=== PATIENT | female | born 1950 | race Caucasian/White ===

== ENCOUNTER 2018-06-15 14:15 | Observation (INO) | payer MEDICARE, OTHER ==
[~2018-06-15] VITALS: Ht 162.6 cm; Wt 63.6 kg
--- NOTE | 2018-06-15 14:46 | NUR ---
Pt complains of chest pressure that radiates through to her back.
[2018-06-15] MEDS ORDERED: nitroGLYCERIN 0.4mg SUBLingual tab SL ONE (14:53)
[2018-06-15] MEDS ORDERED: nitroGLYCERIN 0.4mg SUBLingual tab SL PRN ×2 (14:55→17:50)
[2018-06-15 15:02] LABS: BASOPHILS % (AUTO) 0.5 % (0-1); EOSINOPHILS # (AUTO) 0.1 X10'3 (0-0.9); EOSINOPHILS % (AUTO) 1.1 % (0-6); HEMATOCRIT 42.1 % (35.0-45.0); HEMOGLOBIN 14.3 g/dl (12.0-16.0); LYMPHOCYTES # (AUTO) 3.2 X10'3 (1.1-4.8); LYMPHOCYTES % (AUTO) 37.8 % (21-51); MEAN CORPUSCULAR HEMOGLOBIN 31.8 PG (27.0-31.0); MEAN CORPUSCULAR VOLUME 93.6 FL (78-98); MEAN PLATELET VOLUME 9.2 FL (7.4-10.4); MONOCYTES # (AUTO) 0.6 X10'3 (0-0.9); MONOCYTES % (AUTO) 6.7 % (2-12); NEUTROPHILS # (AUTO) 4.5 X10'3 (1.8-7.7); NEUTROPHILS % (AUTO) 53.9 % (42-75); PLATELET COUNT 231 X10'3 (140-440); RED CELL DISTRIBUTION WIDTH 13.4 % (11.5-14.5); WHITE BLOOD COUNT 8.4 X10'3 (4.5-11.0)
[2018-06-15 15:18] LABS: PARTIAL THROMBOPLASTIN TIME 27 SECONDS (22-32)
[2018-06-15 15:22] LABS: ALANINE AMINOTRANSFERASE 18 U/L (12-78); ALBUMIN 4.2 G/DL (3.4-5.0); ALBUMIN/GLOBULIN RATIO 1.1 (1.1-1.5); ALKALINE PHOSPHATASE 46 IU/L (46-116); ANION GAP 13 (8-16); ASPARTATE AMINO TRANSFERASE 18 U/L (10-37); BILIRUBIN,TOTAL 0.2 MG/DL (0.1-1.0); BLOOD UREA NITROGEN 14 MG/DL (7-18); BUN/CREATININE RATIO 15.4 (6.6-38.0); CALCIUM 9.2 MG/DL (8.5-10.1); CHLORIDE 103 MMOL/L (99-107); CREATININE 0.91 MG/DL (0.40-0.90); GLUCOSE 105 MG/DL (70-104); POTASSIUM 3.5 MMOL/L (3.5-5.1); SODIUM 140 MMOL/L (135-145); TOTAL CARBON DIOXIDE 24.5 MMOL/L (24-32); TOTAL PROTEIN 7.9 G/DL (6.4-8.2); eGFR 61 ML/MIN
[2018-06-15 16:00] LABS: D-DIMER 0.28 MG/L FEU (0-0.50)
--- NOTE | 2018-06-15 16:11 | NUR ---
HOSPITALIST IN ROOM TO EVAL FOR ADMIT.
[2018-06-15] MEDS ORDERED: ASPI-974 PO (16:44)
[2018-06-15] MEDS ORDERED: CHOL500061 PO (16:44)
[2018-06-15] MEDS ORDERED: ESTR1TAB19 PO (16:44)
[2018-06-15] MEDS ORDERED: DENO60DI SQ (16:44)
[2018-06-15] MEDS ORDERED: MAGN400C PO (16:44)
[2018-06-15] MEDS ORDERED: ondansetron/PF 4mg/2ml inj IV ONE (17:00)
[2018-06-15] MEDS ORDERED: normal saline 1000ML IV soln IVB ONE (17:00)
[2018-06-15] MEDS ORDERED: acetaminophen 325mg tablet PO PRN (17:45)
[2018-06-15] MEDS ORDERED: magnesium 4gm in 100ml NS 100 ML IV PRN (17:45)
[2018-06-15] MEDS ORDERED: potassium Cl 40MEQ/NS 500ml 500 ML IV PRN ×2 (17:45)
[2018-06-15] MEDS ORDERED: aspirin 81mg tab.chew PO ONE (17:45)
[2018-06-15] MEDS ORDERED: magnesium 2GM in 50ml NS 50 ML IV PRN (17:45)
[2018-06-15] MEDS ORDERED: potassium Cl 20 mEq SR tablet PO PRN ×2 (17:45)
[2018-06-15] MEDS ORDERED: magnesium Cl slow-release 64mg tablet PO PRN (17:45)
[2018-06-15] MEDS ORDERED: ondansetron/PF 4mg/2ml inj IV PRN (17:45)
[2018-06-15] MEDS ORDERED: regadenoson 0.4mg/5ml syringe IV PRN (17:50)
[2018-06-15] MEDS ORDERED: aminophylline 250mg/10ml inj. IV PRN (17:50)
[2018-06-15] MEDS ORDERED: metoprolol tartrate 1mg/ml inj IV PRN (17:50)
[2018-06-15] MEDS: aspirin 325mg tablet PO SCH (19:37)
[2018-06-15] MEDS: normal saline 1000ml 1,000 ML IV SCH ×2 (19:38→23:51)
--- NOTE | 2018-06-15 22:20 | NUR ---
Patient in room [facility]. I have received report from DEO Avila and had the opportunity to ask questions and assume patient care.
[2018-06-15 22:25] VITALS: BP 142/68
[2018-06-16] VITALS (14 sets, daily range): BP systolic 108–158; BP diastolic 62–92
[2018-06-16 02:50] LABS: BASOPHILS % (AUTO) 0.5 % (0-1); EOSINOPHILS # (AUTO) 0.1 X10'3 (0-0.9); EOSINOPHILS % (AUTO) 1.1 % (0-6); HEMATOCRIT 38.9 % (35.0-45.0); HEMOGLOBIN 12.8 g/dl (12.0-16.0); LYMPHOCYTES # (AUTO) 2.3 X10'3 (1.1-4.8); LYMPHOCYTES % (AUTO) 31.2 % (21-51); MEAN CORPUSCULAR HGB CONC 32.9 % (33.0-36.5); MEAN CORPUSCULAR VOLUME 94.5 FL (78-98); MONOCYTES # (AUTO) 0.6 X10'3 (0-0.9); NEUTROPHILS # (AUTO) 4.3 X10'3 (1.8-7.7); NEUTROPHILS % (AUTO) 59.2 % (42-75); PLATELET COUNT 214 X10'3 (140-440); RED BLOOD COUNT 4.12 X10'6 (4.20-5.60); RED CELL DISTRIBUTION WIDTH 12.9 % (11.5-14.5); WHITE BLOOD COUNT 7.3 X10'3 (4.5-11.0)
[2018-06-16 03:07] LABS: ALBUMIN 3.5 G/DL (3.4-5.0); ANION GAP 12 (8-16); BLOOD UREA NITROGEN 13 MG/DL (7-18); BUN/CREATININE RATIO 15.5 (6.6-38.0); CALCIUM 8.5 MG/DL (8.5-10.1); CHLORIDE 105 MMOL/L (99-107); CREATININE 0.84 MG/DL (0.40-0.90); GLUCOSE 106 MG/DL (70-104); MAGNESIUM 1.9 MG/DL (1.5-2.4); POTASSIUM 3.6 MMOL/L (3.5-5.1); SODIUM 142 MMOL/L (135-145); TOTAL CARBON DIOXIDE 25.1 MMOL/L (24-32); eGFR 67 ML/MIN
--- NOTE | 2018-06-16 06:14 | NUR ---
Problems reprioritized. Patient report given, questions answered & plan of care reviewed with DEO Moreno.
--- NOTE | 2018-06-16 06:22 | NUR ---
Patient in room [facility]. I have received report from Leonard DESOUZA and had the opportunity to ask questions and assume patient care. patient in bed sleeping
[2018-06-16] MEDS: estradiol 1mg tablet PO SCH (07:37)
[2018-06-16] MEDS: K and/or MAG REPLACEMENT MC SCH (07:42)
[2018-06-16] MEDS: enoxaparin 40mg/0.4ml syringe SUBCUT SCH (07:43)
[2018-06-16] MEDS: magnesium oxide 400mg tablet PO SCH ×2 (07:43→13:07)
[2018-06-16] MEDS: vitamin D (cholecalciferol) 1,000 unit tablet PO SCH ×2 (07:43→13:07)
[2018-06-16] MEDS: aspirin 325mg tablet PO SCH ×3 (07:43→21:50)
--- NOTE | 2018-06-16 07:44 | NUR ---
PATIENT IS npo FOR A CARDIO STRESS TEST, SHE DID NOT WANT TO TAKE HER MEDICATIONS ON AN EMPTY STOMACH
--- NOTE | 2018-06-16 09:00 | NUR ---
Patient went to [facility] in wheel chair to get stress test.
[2018-06-16] MEDS ORDERED: regadenoson 0.4mg/5ml syringe IV ONE (09:35)
[2018-06-16] MEDS ORDERED: aminophylline inj. 10 ML IV ONE (09:35)
--- NOTE | 2018-06-16 10:50 | NUR ---
PATIENT BACK TO ROOM 354A FAMILY AND MD AT BEDSIDE
[2018-06-16 11:59] LABS: LIPASE 128 U/L (73-393)
[2018-06-16] MEDS ORDERED: pantoprazole 40mg Tablet.DR PO ONE (13:00)
[2018-06-16] MEDS: metoprolol tartrate 25mg tablet PO SCH ×2 (13:07→21:51)
[2018-06-16 14:00] LABS: CHOL/HDL RATIO 3.8 (0.00-4.99); CHOLESTEROL 246 MG/DL (0-200); HDL CHOLESTEROL 64 MG/DL (35-60); LDL CHOLESTEROL 132 MG/DL (50-100); TRIGLYCERIDES 249 MG/DL (20-135)
--- NOTE | 2018-06-16 16:16 | NUR ---
paged about patients positive orthostatic vitals. I will continue to monitor.
--- NOTE | 2018-06-16 18:20 | NUR ---
Problems reprioritized. Patient report given, Leonard DESOUZA questions answered & plan of care reviewed with . Patient visiting with sister at bedside
--- NOTE | 2018-06-16 18:21 | NUR ---
Patient in room [facility]. I have received report from DEO Moreno and had the opportunity to ask questions and assume patient care.
[2018-06-16] MEDS ORDERED: metoprolol tartrate 25mg tablet PO SCH (20:00)
[2018-06-16] MEDS ORDERED: ALPRAZolam 0.25mg tablet PO PRN (21:00)
[2018-06-17] VITALS: BP 106/60
[2018-06-17 05:58] LABS: BASOPHILS % (AUTO) 0.6 % (0-1); EOSINOPHILS # (AUTO) 0.2 X10'3 (0-0.9); EOSINOPHILS % (AUTO) 2.4 % (0-6); HEMATOCRIT 40.2 % (35.0-45.0); HEMOGLOBIN 13.8 g/dl (12.0-16.0); LYMPHOCYTES # (AUTO) 3.2 X10'3 (1.1-4.8); LYMPHOCYTES % (AUTO) 46.7 % (21-51); MEAN CORPUSCULAR HGB CONC 34.2 g/dL (33.0-36.5); MEAN CORPUSCULAR VOLUME 93.6 FL (78-98); MEAN PLATELET VOLUME 9.1 FL (7.4-10.4); MONOCYTES # (AUTO) 0.5 X10'3 (0-0.9); MONOCYTES % (AUTO) 7.3 % (2-12); NEUTROPHILS # (AUTO) 2.9 X10'3 (1.8-7.7); PLATELET COUNT 230 X10'3 (140-440); RED CELL DISTRIBUTION WIDTH 12.9 % (11.5-14.5); WHITE BLOOD COUNT 6.8 X10'3 (4.5-11.0)
--- NOTE | 2018-06-17 06:03 | NUR ---
Problems reprioritized. Patient report given, questions answered & plan of care reviewed with DEO Moreno.
--- NOTE | 2018-06-17 06:05 | NUR ---
Patient in room [facility]. I have received report from Leonard DESOUZA and had the opportunity to ask questions and assume patient care. Patient in bed sleeping.
[2018-06-17 06:11] LABS: ALBUMIN 3.7 G/DL (3.4-5.0); ANION GAP 12 (8-16); BLOOD UREA NITROGEN 17 MG/DL (7-18); BUN/CREATININE RATIO 17.9 (6.6-38.0); CALCIUM 9.3 MG/DL (8.5-10.1); CHLORIDE 104 MMOL/L (99-107); CREATININE 0.95 MG/DL (0.40-0.90); GLUCOSE 96 MG/DL (70-104); MAGNESIUM 1.9 MG/DL (1.5-2.4); POTASSIUM 3.7 MMOL/L (3.5-5.1); SODIUM 140 MMOL/L (135-145); TOTAL CARBON DIOXIDE 24.2 MMOL/L (24-32); eGFR 58 ML/MIN
[2018-06-17 07:17] VITALS: BP 119/62
[2018-06-17 08:00] VITALS: BP_SYST 119; BP_SYST 121; BP_SYST 127; BP_DIAS 62; BP_DIAS 69; BP_DIAS 70
[2018-06-17] MEDS: enoxaparin 40mg/0.4ml syringe SUBCUT SCH (08:00)
[2018-06-17] MEDS: K and/or MAG REPLACEMENT MC SCH (08:00)
[2018-06-17] MEDS: vitamin D (cholecalciferol) 1,000 unit tablet PO SCH (08:42)
[2018-06-17] MEDS: metoprolol tartrate 25mg tablet PO SCH (08:42)
[2018-06-17] MEDS: magnesium oxide 400mg tablet PO SCH (08:42)
[2018-06-17] MEDS: estradiol 1mg tablet PO SCH (08:42)
[2018-06-17] MEDS: aspirin 325mg tablet PO SCH (08:42)
[2018-06-17 11:00] VITALS: BP 116/64
[2018-06-17] MEDS ORDERED: METO25TA6 PO (12:45)
[2018-06-17] MEDS ORDERED: PANT40SU2 PO (12:47)
--- NOTE | 2018-06-17 13:45 | NUR ---
Patient discharged, all belongings sent, IV discontinued, patient wheeled by staff in wheel chair to front lobby where a friend drove her home.
== END 2018-06-17 13:50 | disposition home or self-care (01) ==
LOC: ER 14:16 → ED HOLD 17:41 → SUR 3N 22:20 → UNDODISOB 06-17 14:32
PROVIDERS: ADMIT Internal Medicine; ATTEND Internal Medicine
DX: I10 Essential (primary) hypertension (principal); R55 Syncope and collapse; M81.0 Age-related osteoporosis without current pathological fracture; I00 Rheumatic fever without heart involvement; I20.0 Unstable angina; E78.5 Hyperlipidemia, unspecified; Z79.899 Other long term (current) drug therapy; Z86.718 Personal history of other venous thrombosis and embolism
CPT/HCPCS: 36415; 71045; 76700; 78452; 80048; 80053; 80061; 83690; 83735; 83880; 84484; 85025; 85379; 85610; 85730; 87070; 93005; 93017; 93306; 93880; 96361; 96374; 99284; A9500; G0378; J0280; J2405; J1650; J7030

== ENCOUNTER 2022-04-09 09:32 | Emergency (ER) | payer MEDICARE ==
[~2022-04-09] VITALS: Ht 162.6 cm; Wt 63.6 kg
[~2022-04-09 09:32] MED LIST: ASPI-974 PO; CHOL500061 PO; DENO60DI SQ; ESTR1TAB19 PO; LOP25T PO; MAGN400C PO; PANT40SU2 PO
[2022-04-09] MEDS ORDERED: normal saline 1000ML IV soln IVB ONE (13:05)
[2022-04-09] MEDS ORDERED: ondansetron/PF 4mg/2ml inj IV ONE (13:05)
--- NOTE | 2022-04-09 13:21 | NUR ---
pt to CT
[2022-04-09 13:58] LABS: ALANINE AMINOTRANSFERASE 22 U/L (12-78); ALKALINE PHOSPHATASE 68 IU/L (46-116); ANION GAP 10 (8-16); ASPARTATE AMINO TRANSFERASE 28 U/L (10-37); BILIRUBIN,TOTAL 0.2 MG/DL (0.1-1.0); BLOOD UREA NITROGEN 15 MG/DL (7-18); BUN/CREATININE RATIO 20.5 (6.6-38.0); CALCIUM 9.4 MG/DL (8.5-10.1); CHLORIDE 100 MMOL/L (99-107); CREATININE 0.73 MG/DL (0.40-0.90); GLUCOSE 114 MG/DL (70-104); POTASSIUM 3.1 MMOL/L (3.5-5.1); SODIUM 140 MMOL/L (135-145); TOTAL CARBON DIOXIDE 30.4 MMOL/L (24-32); eGFR 78 ML/MIN
[2022-04-09 13:59] LABS: BASOPHILS % (AUTO) 0.3 % (0-1); EOSINOPHILS % (AUTO) 0 % (0-6); HEMATOCRIT 41.7 % (35.0-45.0); LYMPHOCYTES # (AUTO) 0.8 X10'3 (1.1-4.8); LYMPHOCYTES % (AUTO) 14.4 % (21-51); MEAN CORPUSCULAR HEMOGLOBIN 31.3 PG (27.0-31.0); MEAN CORPUSCULAR HGB CONC 33.6 g/dL (33.0-36.5); MEAN CORPUSCULAR VOLUME 93.2 FL (78-98); MEAN PLATELET VOLUME 8.5 FL (7.4-10.4); MONOCYTES # (AUTO) 0.3 X10'3 (0-0.9); MONOCYTES % (AUTO) 5.9 % (2-12); NEUTROPHILS # (AUTO) 4.4 X10'3 (1.8-7.7); NEUTROPHILS % (AUTO) 79.4 % (42-75); PLATELET COUNT 199 X10'3 (140-440); RED BLOOD COUNT 4.48 X10'6 (4.20-5.60); RED CELL DISTRIBUTION WIDTH 13.1 % (11.5-14.5); WHITE BLOOD COUNT 5.5 X10'3 (4.5-11.0)
--- NOTE | 2022-04-09 14:25 | NUR ---
pt is resting quietly in dark room, c/o headache 11/24, nausea "still there but is a little better", pt has received one liter NS, waiting for CT results
--- NOTE | 2022-04-09 14:29 | NUR ---
Mikey Taylor NP to reevaluate pt
[2022-04-09] MEDS ORDERED: metoclopramide 5 mg/ml inj IV ONE (14:30)
[2022-04-09] MEDS ORDERED: ketorolac tromethamine 15mg/ml inj. IV ONE (14:30)
[2022-04-09] MEDS ORDERED: diphenhydrAMINE 50 mg/ml inj IV ONE (14:30)
[2022-04-09] MEDS ORDERED: POTASSIUM BICARB 20meq eff tab 20 MEQ TABLET.EFF PO ONE (14:45)
[2022-04-09 15:03] LABS: CLARITY,URINE CLEAR (Clear); COLOR,URINE YELLOW (Yellow); GLUCOSE, URINE NEGATIVE (Neg); KETONES,URINE 15 mg/dl (Neg); LEUKOCYTE ESTERASE ,URINE NEGATIVE (Neg); NITRITES, URINE NEGATIVE (Neg); OCCULT BLOOD,URINE NEGATIVE (Neg); PH,URINE 7.5 (4.8-8.0); PROTEIN,URINE NEGATIVE (Neg); UROBILINOGEN,URINE 0.2 E.U/dL (0.2-1.0)
[2022-04-09 15:07] LABS: UA COLLECTION TYPE CLN CATCH MIDSTREAM
--- NOTE | 2022-04-09 16:05 | NUR ---
pt stated she was feeling better, headache 4/10, pt is able to sit up now and said she will try potassium.
[2022-04-09] MEDS ORDERED: ONDA4TAB12 PO (16:18)
[2022-04-09] MEDS ORDERED: SUMA25TA35 PO (16:18)
[2022-04-09 16:35] VITALS: BP 124/65
== END 2022-04-09 16:37 | disposition home or self-care (01) ==
LOC: ER 09:32
DX: G43.909 Migraine, unspecified, not intractable, without status migrainosus (principal); Z20.822 Contact with and (suspected) exposure to COVID-19; Z79.899 Other long term (current) drug therapy
CPT/HCPCS: 36415; 70450; 71045; 80053; 81003; 84484; 85025; 87502; 87503; 87635; 96374; 96375; 99285; C9803; J1200; J1885; J2405; J2765; J7030